=== PATIENT | male | born 1975 ===

== ENCOUNTER 2018-02-17 11:53 | Emergency (ER) | payer MEDICAID ==
[2018-02-17 12:11] VITALS: BP 150/90; PULSE 71; RESP 20; TEMP 98.6; O2SAT 98
[2018-02-17] MEDS ORDERED: Naproxen 550 mg Tab PO STA (13:24)
[2018-02-17] MEDS ORDERED: Naproxen 550 mg Tab PO ONE (13:30)
--- NOTE | 2018-02-17 14:11 | C.PDOC ---
History Of Present Illness 42yo male, presents to ED for evaluation of left sided rib and left sided leg pain. Patient states on 02/15 he tripped on a coffee table in the living room, injuring the left side of his chest of the chair and left leg. He reports pain with movement or deep breathing. He last took Motrin yesterday with minimal relief of pain. Patient is able to ambulate and denies any changes in sensation. He denies any head injury, loss of consciousness, shortness of breath , weakness, or numbness. - HPI Time Seen by Provider: 02/17/18 13:04 Chief Complaint (Nursing): Rib Injury History Per: Patient History/Exam Limitations: no limitations Onset/Duration Of Symptoms: Days (3) Location Of Injury: Left: Chest, Leg Additional History Per: Patient Past Medical History Reviewed: Historical Data, Nursing Documentation, Vital Signs Vital Signs: Last Vital Signs Temp 98.6 F 02/17/18 12:08 Pulse 71 02/17/18 12:08 Resp 20 02/17/18 12:08 BP 150/90 02/17/18 12:08 Pulse Ox 98 02/17/18 15:04 - Medical History PMH: HTN Surgical History: No Surg Hx Family History: States: No Known Family Hx - Social History Hx Alcohol Use: No Hx Substance Use: No - Immunization History Hx Tetanus Toxoid Vaccination: No Hx Influenza Vaccination: No Hx Pneumococcal Vaccination: No Review Of Systems Except As Marked, All Systems Reviewed And Found Negative. Cardiovascular: Positive for: Chest Pain (left sided) Respiratory: Negative for: Shortness of Breath Musculoskeletal: Positive for: Leg Pain (left) Neurological: Negative for: Weakness, Numbness, Other (head injury, loss of consciousness) Physical Exam - Physical Exam Appears: Non-toxic, No Acute Distress Skin: Normal Color, Warm, Dry Head: Atraumatic, Normacephalic Eye(s): bilateral: Normal Inspection, EOMI Nose: Normal Oral Mucosa: Moist Neck: Normal ROM, Supple Chest: Symmetrical, Tenderness (digitally reproducible point tenderness to left anterior chest wall) Cardiovascular: Rhythm Regular Respiratory: Normal Breath Sounds, No Accessory Muscle Use Extremity: Normal ROM, Tenderness (tenderness, ecchymosis and swelling to proximal anterior left lower leg.), No Calf Tenderness, Capillary Refill (<2 sec ), No Deformity Extremity: Bilateral: Normal ROM Pulses: Left Dorsalis Pedis: Normal, Right Dorsalis Pedis: Normal Neurological/Psych: Oriented x3, Normal Motor, Normal Sensation Gait: Steady ED Course And Treatment O2 Sat by Pulse Oximetry: 98 (RA) Pulse Ox Interpretation: Normal - Other Rad XR left ribs and chest X-Ray: Read By Radiologist Interpretation: FINDINGS: LEFT RIBS: No fracture or focal lesion visualized. LUNGS: Clear. PLEURA: No pneumothorax or pleural fluid. CARDIOVASCULAR: Normal sized heart. No pulmonary vascular congestion. OTHER FINDINGS: None. IMPRESSION: Unremarkable radiographs of the chest and left ribs. No left rib fracture. XR left tib/fib X-Ray: Read By Radiologist Interpretation: FINDINGS: BONES: No fracture or destructive lesion. JOINT SPACES: Unremarkable. OTHER FINDINGS: None. IMPRESSION: Unremarkable radiographs of the left tibia and fibula. Progress Note: Patient given 550mg PO for pain relief. XR ribs and chest, XR left Tib/fib ordered. On reassessment, patient is resting comfortably, and is in no acute distress. Patient was instructed to follow up with physician/clinic in 1-2 days for further evaluation. Disposition - Disposition Disposition: HOME/ ROUTINE Disposition Time: 14:09 Condition: STABLE Additional Instructions: Rest and ice the area. Follow up with your PMD in1 -2 days. Return to eR if symptoms persist or worsen. Prescriptions: Naproxen [Naprosyn] 1 tab PO BID PRN #20 tab PRN Reason: Pain Instructions: Bruised Rib (DC) Forms: [employer] ([place] Citizen) - Clinical Impression Clinical Impression: Chest wall contusion, Contusion of leg
--- NOTE | 2018-02-17 14:42 | RAD ---
PROCEDURE: Radiographs of the Chest and Left Ribs. HISTORY: trauma COMPARISON: Point. TECHNIQUE: Frontal radiograph of the chest and multiple oblique radiographs of the left ribs were obtained. FINDINGS: LEFT RIBS: No fracture or focal lesion visualized. LUNGS: Clear. PLEURA: No pneumothorax or pleural fluid. CARDIOVASCULAR: Normal sized heart. No pulmonary vascular congestion. OTHER FINDINGS: None. IMPRESSION: Unremarkable radiographs of the chest and left ribs. No left rib fracture.
--- NOTE | 2018-02-17 14:48 | RAD ---
PROCEDURE: Left tibia and fibula HISTORY: trauma COMPARISON: None available. TECHNIQUE: Frontal and lateral views obtained. FINDINGS: BONES: No fracture or destructive lesion. JOINT SPACES: Unremarkable. OTHER FINDINGS: None. IMPRESSION: Unremarkable radiographs of the left tibia and fibula.
== END 2018-02-17 14:19 | disposition home or self-care (01) ==
LOC: C.ER 11:53
DX: S20.212A Contusion of left front wall of thorax, initial encounter (principal); S80.12XA Contusion of left lower leg, initial encounter; W01.0XXA Fall on same level from slipping, tripping and stumbling without subsequent striking against object, initial encounter